=== PATIENT | female | born 1930 | race Caucasian/White ===

== ENCOUNTER 2017-01-25 12:26 | Inpatient (IN) | payer MEDICARE, BC ==
[2017-01-25] MEDS ORDERED: HEPARIN SODIUM,PORCINE/D5W PMX 25,000 UNIT in DEXTROSE/WATER 1 500ML.BAG IV STA (12:31)
[2017-01-25] MEDS ORDERED: HEPARIN SODIUM,PORCINE 5,000 UNIT/ML 1 ML VIAL IV STA (12:31)
[2017-01-25] MEDS ORDERED: NITROGLYCERIN-D5W PMX 50 MG in DEXTROSE/WATER 1 250ML.BAG IV ONE (12:35)
[2017-01-25] MEDS ORDERED: VERAPAMIL 2.5 MG/ML 2 ML AMP ONE (12:39)
[2017-01-25] MEDS ORDERED: fentaNYL (PF) 50 MCG/ML 2 ML AMP ONE (12:39)
[2017-01-25] MEDS ORDERED: LIDOCAINE 2% INJ 20 MG/ML (20 ML MDV) ONE (12:39)
[2017-01-25] MEDS ORDERED: HEPARIN SODIUM 1,000 UNIT/ML VIAL ONE (12:40)
--- NOTE | 2017-01-25 12:42 | ED ---
Chest Pain HPI - General Chief Complaint: Chest Pain Stated Complaint: Stemi Source: patient, EMS Mode of arrival: EMS Limitations: no limitations - History of Present Illness Initial Comments: This 86-year-old white female presents with a complaint of weakness which is been present over the last 3 days. She apparently has been weak to the point where she is having problems walking. She has felt nauseated but has not vomited. She denies any actual chest pain or shortness of breath. She states that she felt 'terrible'. She is having a hard time describing it any further. She does have a history of dementia but actually is alert and oriented currently. She denies any known previous cardiac problems. She has had a remote stress test. She did present via EMS and they gave her an aspirin and route. They did complete an EKG which shows ST elevation of the inferior leads and they transmitted us prior to arrival. No other complaints or modifying factors. - Related Data Home Medications Medication Instructions Recorded Confirmed Furosemide [Furosemide] 20 mg PO DAILY 12/05/15 01/25/17 Lisinopril [Zestril] 10 mg PO DAILY 02/05/16 01/25/17 glipiZIDE [Glucotrol] 15 mg PO BID 02/05/16 01/25/17 Allergies Allergy/AdvReac Type Severity Reaction Status Date / Time No Known Allergies Allergy Verified 01/25/17 13:22 Review of Systems ROS Statement: Those systems with pertinent positive or pertinent negative responses have been documented in the HPI. ROS Other: All systems not noted in ROS Statement are negative. Past Medical History Past Medical History: Diabetes Mellitus, Eye Disorder, Hypertension, Pneumonia, Vascular Disorder Additional Past Medical History / Comment(s): family suspects TIA"s and alzhiemers. lt breast cancer 10 years ago. Swelling in bilateral legs History of Any Multi-Drug Resistant Organisms: None Reported Past Surgical History: Tonsillectomy Additional Past Surgical History / Comment(s): breast cancer-10 years ago Past Anesthesia/Blood Transfusion Reactions: No Reported Reaction Past Psychological History: No Psychological Hx Reported Smoking Status: Never smoker Past Alcohol Use History: None Reported Past Drug Use History: None Reported - Past Family History Brother(s) Family Medical History: Cancer Additional Family Medical History / Comment(s): breast and colon Father Family Medical History: Cancer Additional Family Medical History / Comment(s): prostated Sister(s) Family Medical History: Cancer Additional Family Medical History / Comment(s): bladder cancer Mother Family Medical History: Dementia General Exam - General Exam Comments Initial Comments: GENERAL: The patient is well nourished and well hydrated. VITAL SIGNS: Heart rate, blood pressure, respiratory rate reviewed as recorded in nurse's notes. EYES: Pupils are round and reactive. Extraocular movements are intact. No conjunctival / lid redness or swelling. ENT: No external evidence of injury, swelling, or ecchymosis. Airway is patent. Throat is clear. NECK: Nontender. No swelling or evidence of injury. No subcutaneous emphysema. Trachea is midline. No thyroid mass. HEART: Regular rate and rhythm. Good peripheral pulses. LUNGS/CHEST: Breath sounds clear and equal bilaterally. No rales, rhonchi, or wheezes. No ecchymosis, subcutaneous emphysema, or tenderness. ABDOMEN: Abdomen soft without tenderness. No palpable masses or organomegaly. No peritoneal signs. No abdominal wall swelling or ecchymosis. EXTREMITIES: No extremity tenderness. Normal muscle tone and function. No thoracolumbar tenderness. NEUROLOGIC: Sensation is grossly intact. Cranial nerve exam reveals face is symmetrical, tongue is midline, speech is clear. SKIN: No abrasions or ecchymosis is noted. No induration or masses noted. PSYCHIATRIC: Alert and oriented. Appropriate behavior and judgment. Limitations: no limitations Course Vital Signs 01/25/17 01/25/17 01/25/17 12:27 12:42 12:47 Temperature 98.7 F Pulse Rate 65 74 66 Respiratory 16 18 Rate Blood Pressure 129/63 130/57 85/50 O2 Sat by Pulse 98 Oximetry 01/25/17 01/25/17 01/25/17 12:49 12:52 13:02 Temperature Pulse Rate 64 64 62 Respiratory 18 Rate Blood Pressure 90/50 92/54 110/62 O2 Sat by Pulse 100 100 100 Oximetry 01/25/17 01/25/17 13:06 13:42 Temperature Pulse Rate 62 60 Respiratory 16 16 Rate Blood Pressure 126/71 124/66 O2 Sat by Pulse 100 98 Oximetry Chest Pain MDM - MDM The patient was seen and examined. All diagnostics were reviewed. The EKG shows ST elevation in lead's to 3 and aVF. It also shows a normal sinus rhythm at a rate of 66. The RI interval is 200, QRS duration is 102, and QTC intervals 436. This is consistent with EKG completed by EMS as well. The case is discussed with cardiology directly after patient arrival. A STEMI activation was completed. The patient initially was started on nitroglycerin but this was discontinued as the patient's blood pressure dropped. Heparin is initiated. An aspirin was not given as the patient had an aspirin given to her by EMS. The patient and her son decided to not undergo heart catheterization and elected for medical treatment. Her troponin came back severely elevated. She will be admitted to the intensive care unit for further treatment. The case was discussed with cardiology in the ER. The case is also discussed with Dr. Ortiz and he accepts admission. Pulmonology/critical care also will be consulted and case will be discussed with Dr. Ramos in in the near future. It is felt as though she is critically ill. Approximately 30 minutes of critical care time was utilized and the treatment of the patient. Disposition Clinical Impression: ST elevation myocardial infarction (STEMI) of inferior wall, Weakness, Nausea, Elevated troponin Disposition: ADMITTED IP TO THIS [facility] Condition: Critical Time of Disposition: 14:02 Decision Date: 01/25/17 Decision Time: 14:02
[2017-01-25 12:48] LABS: CH 31.7; CHCM 34.4; HCT 41.7 % (34.0-46.0); HDW 2.56; HGB 14.2 gm/dL (11.4-16.0); MCH 31.5 pg (25.0-35.0); MCHC 34.1 g/dL (31.0-37.0); MCV 92.6 fL (80.0-100.0); Mean Platelet Volume 7.3; RDW 12.9 % (11.5-15.5); WBC 11.8 k/uL (3.8-10.6)
[2017-01-25 12:58] LABS: ALT 60 U/L (9-52); AST 142 U/L (14-36); Alkaline Phosphatase 98 U/L (38-126); Anion Gap 17 mmol/L; Blood Urea Nitrogen 40 mg/dL (7-17); Calcium 9.9 mg/dL (8.4-10.2); Carbon Dioxide 20 mmol/L (22-30); Chloride 98 mmol/L (98-107); Glucose 258 mg/dL (74-99); Non-African American GFR(MDRD) 56 (>60 ml/min/1.73 sqM); Potassium 5.1 mmol/L (3.5-5.1); Sodium 135 mmol/L (137-145); Total Bilirubin 1.4 mg/dL (0.2-1.3); Total Protein 7.3 g/dL (6.3-8.2)
[2017-01-25 13:01] LABS: INR 1.1 (<1.1); Partial Thromboplastin Time 22.8 sec (22.0-30.0); Prothrombin Time 11.4 sec (9.0-12.0)
[2017-01-25 13:29] LABS: Creatine Kinase MB 42.8 ng/mL (0.0-2.4); Troponin I 17.7 ng/mL (0.000-0.034)
[2017-01-25] MEDS ORDERED: NITROGLYCERIN SL TABS 0.4 MG TAB SUBLINGUAL PRN (14:03)
--- NOTE | 2017-01-25 14:51 | XR ---
EXAMINATION TYPE: XR chest 1V portable DATE OF EXAM: 01/25/2017 2:38 PM HISTORY: chest pain. REFERENCE: Previous study dated 02/05/2016. FINDINGS: The heart is enlarged. There are surgical clips projecting over the left side of the chest. The lungs are clear. Pleural spaces are clear. IMPRESSION: 1. CARDIOMEGALY. 2. POSTSURGICAL CHANGE.
[2017-01-25] MEDS: CLOPIDOGREL 75 MG TAB PO SCH (15:00)
[2017-01-25] MEDS: ATORVASTATIN 80 MG TAB PO SCH (15:00)
--- NOTE | 2017-01-25 17:37 | CONS ---
DATE OF CONSULTATION: 01/25/2017 Ms. Menezes is an 86-year-old female who was seen in the emergency room. Patient has been complaining of nausea, vomiting and not feeling good for the last 3 days. Apparently today when she was using her walker she became more short of breath. Her son insisted on her coming to the emergency room and the EMS was called. EKG was consistent with an inferior wall myocardial infarction. The patient denies any prior history of cardiac disease except a heart murmur. She has no chest discomfort, chest pressure or symptoms to suggest angina pectoris. She has mild dyspnea on exertion. She has had some peripheral edema in the past. No PND. No orthopnea. No dizziness. No syncope. Her coronary risk factors are remarkable for smoking. She is not hypertensive. Her medication list is not available to me at this time. REVIEW OF SYSTEMS: RESPIRATORY SYSTEM: She has some dyspnea on exertion. No recent wheezing or cough. GI SYSTEM: No recent GI bleeding. No peptic ulcer disease. SYSTEM: No dysuria or hematuria. NERVOUS SYSTEM: No stroke or seizure. PHYSICAL EXAMINATION: She is an 86-year-old female, alert, in no apparent distress. Heart rate in the 60s. Blood pressure 129/70. HEAD: Normocephalic. EYES: Sclerae anicteric. NECK: Good upstroke. No bruit. LUNGS: Clear to auscultation. HEART: Regular rate and rhythm. S1, S2, no S3, with systolic murmur at the base. No diastolic murmur. No rub. ABDOMEN: Soft, nontender. Trace to 1+ edema, +2 distal pulses. EKG reveals sinus mechanism with ST elevation in 2, 3 and AVF. Mild changes on the lateral precordial leads. Other labs are pending. IMPRESSION: 1. Acute inferior myocardial infarction. 2. History of hypertension. RECOMMENDATION: I have discussed with the patient the findings. I have discussed with her the situation and the option of proceeding with coronary angiography versus conservative treatment. She expressed wish to be a NO CODE but she is not quite sure if she wants to proceed with cardiac catheterization and she would like to wait for her son to arrive to make further decision, but at this time she favored not to proceed with any aggressive work-up. We will await her son arriving to make further decision. Thank you for this consult. We will follow with you.
[2017-01-25] MEDS: HEPARIN SODIUM,PORCINE/D5W PMX 25,000 UNIT in DEXTROSE/WATER 1 500ML.BAG IV SCH (18:48)
[2017-01-25 18:49] LABS: Glucose,Whole Blood 264 mg/dL (75-99)
--- NOTE | 2017-01-25 18:59 | P.CNPUL ---
History of Present Illness Consult date: 01/25/17 Chief complaint: Acute MS History of present illness: This is a very pleasant 86-year-old here patient was brought into the emergency department and she was immediately found out to be an acute ST segment elevation myocardial infarction involving the area inferior wall. The patient was complaining of nausea vomiting and generalized weakness for the past 3 days. Her son came into the house and he also found her to be short of breath. He insisted on bringing her to the hospital and the patient EKG showed inferior wall myocardial infarction which was of an ST segment elevation type. The patient was seen by cardiology. She declined any further intervention. Currently she is free of any chest pain. She is hemodynamically stable. No cardiac arrhythmias have been noted. No syncope. No ongoing nausea or vomiting. In fact she is much more comfortable at this point on aspirin and IV heparin. She is making adequate amount of urine output. The patient's initial troponin was at 17.7. Renal function was normal with a creatinine of 0.95. The chest x-ray is showing cardiomegaly. She has a DNR/DNI CODE STATUS. Review of Systems Full review of system was done and the positive findings are almost above the history of present illness Past Medical History Past Medical History: Cancer, Diabetes Mellitus, Eye Disorder, Hypertension, Pneumonia, Vascular Disorder Additional Past Medical History / Comment(s): Alzheimer's dementia, previous history of TIA, breast cancer diagnosed approximately 10 years ago, previous UTI , diabetes mellitus, hypertension, peripheral vascular disease with a previous ulcer in the right lower extremity 2016 at was treated History of Any Multi-Drug Resistant Organisms: None Reported Past Surgical History: Tonsillectomy Additional Past Surgical History / Comment(s): Lumpectomy Past Anesthesia/Blood Transfusion Reactions: No Reported Reaction Past Psychological History: No Psychological Hx Reported Additional Psychological History / Comment(s): pt stated currently living alone( at [facility])-lives n ahouse that has 2 steps to get into home. no pets.no outside services.has a cane/walker. Smoking Status: Never smoker Past Alcohol Use History: None Reported Past Drug Use History: None Reported - Past Family History Brother(s) Family Medical History: Cancer Additional Family Medical History / Comment(s): breast and colon Father Family Medical History: Cancer Additional Family Medical History / Comment(s): prostated Sister(s) Family Medical History: Cancer Additional Family Medical History / Comment(s): bladder cancer Mother Family Medical History: Dementia Medications and Allergies Home Medications Medication Instructions Recorded Confirmed Type Furosemide [Furosemide] 20 mg PO DAILY 12/05/15 01/25/17 History Lisinopril [Zestril] 10 mg PO DAILY 02/05/16 01/25/17 History glipiZIDE [Glucotrol] 15 mg PO BID 02/05/16 01/25/17 History Allergies Allergy/AdvReac Type Severity Reaction Status Date / Time No Known Allergies Allergy Verified 01/25/17 13:22 Physical Exam Vitals: Vital Signs Temp Pulse Resp BP Pulse Ox 01/25/17 18:00 72 19 103/66 100 01/25/17 17:30 65 19 103/66 100 01/25/17 17:19 97.6 F 68 18 100 01/25/17 16:56 97.5 F L 69 16 103/58 100 01/25/17 16:26 97.1 F L 66 18 135/61 100 01/25/17 15:27 66 131/56 100 01/25/17 14:33 66 18 123/65 01/25/17 14:30 96.7 F L 66 18 138/64 100 01/25/17 14:02 64 18 125/62 01/25/17 13:42 60 16 124/66 98 01/25/17 13:06 62 16 126/71 100 01/25/17 13:02 62 18 110/62 100 Intake and Output 01/25/17 01/25/17 01/25/17 06:59 14:59 22:59 Intake Total 20 Balance 20 Intake: IV 20 0.9 normal saline 20 The patient appeared well nourished and normally developed. Vital signs as documented. Head exam is unremarkable. No scleral icterus or corneal arcus noted. Neck is without jugular venous distension, thyromegaly, or carotid bruits. Carotid upstrokes are brisk bilaterally. Lungs are clear to auscultation and percussion. Cardiac exam reveals the PMI to be normally sized and situated. Rhythm is regular. First and second heart sounds normal. No murmurs, rubs or gallops. Abdominal exam reveals normal bowel sounds, no masses , no organomegaly and no aortic enlargement. Extremities are nonedematous and both femoral and pedal pulses are normal. Results - Laboratory Findings CBC and BMP: 01/25/17 12:37 01/25/17 12:37 PT/INR, D-dimer PT 11.4 sec (9.0-12.0) 01/25/17 12:37 INR 1.1 (<1.1) 01/25/17 12:37 Abnormal lab findings: Abnormal Labs 01/25/17 18:47 POC Glucose (mg/dL) 264 H - Diagnostic Findings Chest x-ray: image reviewed Assessment and Plan Plan: Assessment [address] segment elevation inferior wall myocardial infarction. Patient is currently hemodynamically stable. The patient is feeling any chest pain. Troponin is at 17.7 initial set of further levels are still pending. Patient declined having any procedures. 2 diabetes mellitus 3 cardiomegaly without signs of heart failure. 4 hypertension 5 breast cancer with a previous lumpectomy followed by radiation therapy on the left this was more than 10 years ago 6 peripheral vascular disease 7 history of dementia and it is suspected by the family. PLAN Continue aspirin 81 mg by mouth daily, Plavix 75 mg by mouth daily, metoprolol 12.5 mg by mouth twice a day, nitroglycerin was discontinued and the patient developed hypotension. Cautious administration of Lasix 90 the patient is inferior wall myocardial infarction. Continue Heladio inhibitors. Continue high- dose statins. Echocardiogram in a.m. IV heparin for another 24-48 hours. Keep the patient for monitoring in the IC from the 24-48 hours. We'll continue to follow. No interventions in terms of cardiac cath. Patient's wish.
[2017-01-25] MEDS: INSULIN LISPRO (humaLOG) 300 UNIT/3 ML VIAL SQ SCH ×2 (19:05→21:57)
[2017-01-25 19:32] LABS: Creatine Kinase MB 32.7 ng/mL (0.0-2.4); Troponin I 18.6 ng/mL (0.000-0.034)
[2017-01-25] MEDS: glipiZIDE 5 MG TAB PO SCH (21:57)
[2017-01-25] MEDS: METOPROLOL TARTRATE 12.5 MG TAB PO SCH (21:57)
[2017-01-25 21:58] LABS: Glucose,Whole Blood 204 mg/dL (75-99)
[2017-01-25 22:36] LABS: Hemoglobin A1C 6.9 % (4.2-6.1)
[2017-01-26 01:12] LABS: Creatine Kinase MB 22.9 ng/mL (0.0-2.4)
[2017-01-26] MEDS: HEPARIN SODIUM,PORCINE 5,000 UNIT/ML 1 ML VIAL IV PRN ×2 (01:19→18:59)
[2017-01-26 06:23] LABS: Glucose,Whole Blood 191 mg/dL (75-99)
[2017-01-26 06:59] LABS: Basophils % (A) 0 %; CH 31.5; CHCM 34.6; Eosinophils # (A) 0.1 k/uL (0-0.7); Eosinophils % (A) 0 %; HCT 36.7 % (34.0-46.0); HDW 2.51; HGB 12.3 gm/dL (11.4-16.0); Luc # (Auto) 0.23; Luc % (Auto) 2; Lymphocytes # (A) 1.3 k/uL (1.0-4.8); Lymphocytes % (A) 10 %; MCH 30.7 pg (25.0-35.0); MCHC 33.5 g/dL (31.0-37.0); MCV 91.6 fL (80.0-100.0); Mean Platelet Volume 7.7; Monocytes % (A) 7 %; Neutrophils # (A) 10.6 k/uL (1.3-7.7); Neutrophils % (A) 81 %; RBC 4.01 m/uL (3.80-5.40); RDW 13.2 % (11.5-15.5); WBC 13.2 k/uL (3.8-10.6); WBC (Perox) 13.03
[2017-01-26 07:10] LABS: Anion Gap 13 mmol/L; Blood Urea Nitrogen 42 mg/dL (7-17); Calcium 8.9 mg/dL (8.4-10.2); Carbon Dioxide 16 mmol/L (22-30); Chloride 102 mmol/L (98-107); Cholesterol 106 mg/dL (<200); Glucose 194 mg/dL (74-99); HDL Cholesterol 37 mg/dL (40-60); Non-African American GFR(MDRD) 58 (>60 ml/min/1.73 sqM); Potassium 4.8 mmol/L (3.5-5.1); Sodium 131 mmol/L (137-145); Triglycerides 62 mg/dL (<150)
[2017-01-26] MEDS: ATORVASTATIN 80 MG TAB PO SCH (08:02)
[2017-01-26] MEDS: ASPIRIN 81 MG CHEW PO SCH (08:02)
[2017-01-26] MEDS: glipiZIDE 5 MG TAB PO SCH ×2 (08:03→21:09)
[2017-01-26] MEDS: FUROSEMIDE 20 MG TAB PO SCH (08:04)
[2017-01-26] MEDS: LISINOPRIL 10 MG TAB PO SCH (08:04)
[2017-01-26] MEDS: METOPROLOL TARTRATE 12.5 MG TAB PO SCH ×2 (08:04→21:09)
[2017-01-26] MEDS: INSULIN LISPRO (humaLOG) 300 UNIT/3 ML VIAL SQ SCH ×4 (08:07→21:09)
[2017-01-26 08:18] LABS: Glucose,Whole Blood 220 mg/dL (75-99)
[2017-01-26] MEDS: CLOPIDOGREL 75 MG TAB PO SCH (10:26)
[2017-01-26 11:40] LABS: Glucose,Whole Blood 214 mg/dL (75-99)
--- NOTE | 2017-01-26 11:56 | ECHOF ---
Referral Reason:mi MEASUREMENTS -------- HEIGHT: 157.5 cm WEIGHT: 68.0 kg BP: RVIDd: 3.9 cm (< 3.3) IVSd: 1.1 cm (0.6 - 1.1) LVIDd: 2.5 cm (3.9 - 5.3) LVPWd: 1.0 cm (0.6 - 1.1) IVSs: 1.5 cm LVIDs: 2.2 cm LVPWs: 1.3 cm LA Diam: 3.6 cm (2.7 - 3.8) Ao Diam: 3.3 cm (2.0 - 3.7) AV Cusp: 0.8 cm (1.5 - 2.6) LA Diam: 3.7 cm (2.7 - 3.8) MV EXCURSION: 15.618 mm (> 18.000) MV EF SLOPE: 39 mm/s (70 - 150) EPSS: 0.4 cm MV E Figueroa: 0.80 m/s MV DecT: 330 ms MV A Figueroa: 1.33 m/s MV E/A Ratio: 0.60 AV maxP.87 mmHg AV meanP.37 mmHg RAP: 5.00 mmHg RVSP: 15.69 mmHg FINDINGS -------- Sinus rhythm. This was a technically adequate study. There is mild concentric left ventricular hypertrophy. Overall left ventricular systolic function is low-normal with, an EF between 50 - 55 %. The right ventricle is severely enlarged. The right ventricular septal wall is flattened in diastole and systole which is consistent with right ventricular volume and pressure overload. The left atrial size is normal. The right atrium is moderately enlarged. There is mild aortic regurgitation. Peak/mean gradient across the Aortic Valve is 17.87mmHg / 9.37mmHg. Aov is stenotic with decrease openeing: gradient is under estimated. Mild mitral annular calcification present. Mild mitral regurgitation is present. Moderate tricuspid regurgitation present. There is no evidence of pulmonary hypertension. The right ventricular systolic pressure, as measured by Doppler, is 15.69mmHg. There is no pulmonic regurgitation present. The aortic root size is normal. There is no pericardial effusion. CONCLUSIONS -------- 1. There is mild concentric left ventricular hypertrophy. 2. Mild mitral regurgitation is present. 3. Moderate tricuspid regurgitation present. 4. There is no evidence of pulmonary hypertension. 5. The right ventricular systolic pressure, as measured by Doppler, is 15.69mmHg. 6. Overall left ventricular systolic function is low-normal with, an EF between 50 - 55 %. 7. The right ventricle is severely enlarged. 8. The right ventricular septal wall is flattened in diastole and systole which is consistent with right ventricular volume and pressure overload. 9. The right atrium is moderately enlarged. 10. There is mild aortic regurgitation. 11. Peak/mean gradient across the Aortic Valve is 17.87mmHg / 9.37mmHg. 12. Aov is stenotic with decrease openeing: gradient is under estimated. 13. Mild mitral annular calcification present. LAUNDRY TECH: Zeina Garcia RDCS
[2017-01-26] MEDS ORDERED: Magnesium Replacement Protocol 1 EACH MISC MISCELLANE PRN (12:38)
[2017-01-26] MEDS ORDERED: Potassium Replacement Protocol 1 EACH MISC MISCELLANE PRN (12:38)
--- NOTE | 2017-01-26 13:47 | P.HPIM ---
History of Present Illness H&P Date: 01/26/17 Chief Complaint: Not feeling well This is a 86-year-old female with past medical history noted below significant for underlying dementia that is a very poor historian. Most of the history was obtained by chart review and nursing staff report. Apparently patient presented to the emergency room with generalized weakness and not feeling well. She has been reporting nausea and intermittent vomiting to her son for the past few days. She did not want to go to the hospital for evaluation for her son insisted and eventually she presented to [place] emergency room. She was found to have an acute ST elevation AR in the inferior leads. She was evaluated by cardiology and after discussion with her and her family members they elected to proceed with medical management and no aggressive measures. Patient would like to be DO NOT RESUSCITATE/DO NOT INTUBATE. She is currently on telemetry floor. She is awake and alert and appeared cheerful. She does not have any specific concerns or complaints. She denies any chest pain or shortness of breath at this time. She is maintained on optimize medical management involving IV heparin, underwent antiplatelet therapy, beta angelika, and Heladio inhibitors. Review of Systems Review of system: 14 points review of systems were obtained and were negative except to what were mentioned in the HPI. Past Medical History Past Medical History: Cancer, Diabetes Mellitus, Eye Disorder, Hypertension, Pneumonia, Vascular Disorder Additional Past Medical History / Comment(s): Alzheimer's dementia, previous history of TIA, breast cancer diagnosed approximately 10 years ago, previous UTI , diabetes mellitus, hypertension, peripheral vascular disease with a previous ulcer in the right lower extremity 2016 at was treated History of Any Multi-Drug Resistant Organisms: None Reported Past Surgical History: Tonsillectomy Additional Past Surgical History / Comment(s): Lumpectomy Past Anesthesia/Blood Transfusion Reactions: No Reported Reaction Past Psychological History: No Psychological Hx Reported Additional Psychological History / Comment(s): pt stated currently living alone( at [facility])-lives n ahouse that has 2 steps to get into home. no pets.no outside services.has a cane/walker. Smoking Status: Never smoker Past Alcohol Use History: None Reported Past Drug Use History: None Reported - Past Family History Brother(s) Family Medical History: Cancer Additional Family Medical History / Comment(s): breast and colon Father Family Medical History: Cancer Additional Family Medical History / Comment(s): prostated Sister(s) Family Medical History: Cancer Additional Family Medical History / Comment(s): bladder cancer Mother Family Medical History: Dementia Medications and Allergies Home Medications Medication Instructions Recorded Confirmed Type Furosemide [Furosemide] 20 mg PO DAILY 12/05/15 01/25/17 History Lisinopril [Zestril] 10 mg PO DAILY 02/05/16 01/25/17 History glipiZIDE [Glucotrol] 15 mg PO BID 02/05/16 01/25/17 History Allergies Allergy/AdvReac Type Severity Reaction Status Date / Time No Known Allergies Allergy Verified 01/25/17 13:22 Physical Exam Vitals: Vital Signs Temp Pulse Pulse Resp BP BP Pulse Ox 01/26/17 08:00 98.8 F 60 16 118/58 98 01/26/17 04:52 59 L 16 125/71 95 01/26/17 00:00 98.4 F 70 16 131/66 97 01/25/17 22:00 62 18 152/75 99 01/25/17 21:00 77 14 128/72 99 01/25/17 20:00 98.5 F 71 15 134/82 100 01/25/17 19:00 72 23 103/58 98 01/25/17 18:00 72 19 103/66 100 01/25/17 17:40 19 01/25/17 17:30 65 19 103/66 100 01/25/17 17:19 97.6 F 68 18 100 01/25/17 16:56 97.5 F L 69 16 103/58 100 01/25/17 16:26 97.1 F L 66 18 135/61 100 01/25/17 15:27 66 131/56 100 01/25/17 14:33 66 18 123/65 01/25/17 14:30 96.7 F L 66 18 138/64 100 01/25/17 14:02 64 18 125/62 01/25/17 13:42 60 16 124/66 98 Intake and Output 01/25/17 01/26/17 01/26/17 22:59 06:59 14:59 Intake Total 162.168 116.84 325.133 Output Total 200 204 Balance -37.832 -87.16 325.133 Intake: IV 100 0.9 normal saline 100 Intake, IV Titration 62.168 116.84 145.133 Amount Heparin Sodium,Porcine/ 5.168 116.84 145.133 D5w Pmx 25,000 unit In Dextrose/Water 1 500ml. bag @ 12 UNITS/KG/HR 16. 32 mls/hr IV .Q24H [facility] Rx #:[id number] Heparin Sodium,Porcine/ 57 D5w Pmx 25,000 unit In Dextrose/Water 1 500ml. bag @ 12 UNITS/KG/HR 16. 32 mls/hr IV .Q24H [facility] Rx #:[id number] Oral 180 Output: Urine 200 200 Stool 4 Other: Voiding Method Bedside Commode Bedside Commode Bedside Commode Incontinent Incontinent Incontinent # Voids 1 Weight 65.1 kg General: The patient is awake and alert, in no distress, and does not appear acutely ill. Eye: extra-ocular movements are intact; there is normal conjunctiva bilaterally. . Neck: The neck is supple, there is no tenderness or JVD. Cardiovascular: Normal S1-S2, no S3-S4, no murmurs. Respiratory: Lungs clear to auscultation bilaterally with no wheezes rhonchi or rales. Gastrointestinal: Abdomen is soft, nontender, nondistended, with no organomegaly. . Musculoskeletal: There is no pedal edema. Neurological: There are no obvious motor or sensory deficits. Speech is normal. Skin: Skin is warm and dry Results CBC & Chem 7: 01/26/17 06:33 01/26/17 06:33 Labs: Abnormal Lab Results - Last 24 Hours (Table) 01/25/17 01/25/17 01/25/17 Range/Units 18:33 18:33 18:47 WBC (3.8-10.6) k/uL Neutrophils # (1.3-7.7) k/uL APTT 46.0 H (22.0-30.0) sec Sodium (137-145) mmol/L Carbon Dioxide (22-30) mmol/L BUN (7-17) mg/dL Glucose (74-99) mg/dL POC Glucose (mg/dL) 264 H (75-99) mg/dL Total Creatine Kinase 763 H (30-135) U/L CK-MB (CK-2) 32.7 H* (0.0-2.4) ng/mL Troponin I 18.600 H* (0.000-0.034) ng/mL HDL Cholesterol (40-60) mg/dL 01/25/17 01/26/17 01/26/17 Range/Units 21:57 00:27 00:27 WBC (3.8-10.6) k/uL Neutrophils # (1.3-7.7) k/uL APTT 46.6 H (22.0-30.0) sec Sodium (137-145) mmol/L Carbon Dioxide (22-30) mmol/L BUN (7-17) mg/dL Glucose (74-99) mg/dL POC Glucose (mg/dL) 204 H (75-99) mg/dL Total Creatine Kinase 616 H (30-135) U/L CK-MB (CK-2) 22.9 H* (0.0-2.4) ng/mL Troponin I 18.000 H* (0.000-0.034) ng/mL HDL Cholesterol (40-60) mg/dL 01/26/17 01/26/17 01/26/17 Range/Units 06:22 06:33 06:33 WBC 13.2 H (3.8-10.6) k/uL Neutrophils # 10.6 H (1.3-7.7) k/uL APTT (22.0-30.0) sec Sodium 131 L (137-145) mmol/L Carbon Dioxide 16 L (22-30) mmol/L BUN 42 H (7-17) mg/dL Glucose 194 H (74-99) mg/dL POC Glucose (mg/dL) 191 H (75-99) mg/dL Total Creatine Kinase (30-135) U/L CK-MB (CK-2) (0.0-2.4) ng/mL Troponin I (0.000-0.034) ng/mL HDL Cholesterol 37 L (40-60) mg/dL 01/26/17 01/26/17 01/26/17 Range/Units 06:33 08:00 11:32 WBC (3.8-10.6) k/uL Neutrophils # (1.3-7.7) k/uL APTT 108.3 H* (22.0-30.0) sec Sodium (137-145) mmol/L Carbon Dioxide (22-30) mmol/L BUN (7-17) mg/dL Glucose (74-99) mg/dL POC Glucose (mg/dL) 220 H 214 H (75-99) mg/dL Total Creatine Kinase (30-135) U/L CK-MB (CK-2) (0.0-2.4) ng/mL Troponin I (0.000-0.034) ng/mL HDL Cholesterol (40-60) mg/dL Thrombosis Risk Factor Assmnt - Choose All That Apply Any of the Below Risk Factors Present?: Yes Each Factor Represents 1 point: Acute AR, Obesity (BMI >25), Swollen legs ( current) Other Risk Factors: Yes Each Risk Factor Represents 2 Points: Malignancy Each Risk Factor Represents 3 Points: Age 75 years or older Other congenital or acquired thrombophilia - If yes, enter type in comment: No Thrombosis Risk Factor Assessment Total Risk Factor Score: 8 Thrombosis Risk Factor Assessment Level: High Risk Assessment and Plan Plan: 1. Acute inferior wall ST elevation myocardial infarction 2. Essential hypertension 3. Mixed hyperlipidemia currently on Lipitor 80 for acute AR. Total cholesterol 106, LDL 57 4. Underlying dementia/cognitive impairment 5. Type 2 diabetes mellitus Today, I reviewed her medication list the lab work results. Continue optimal medical management with dual antiplatelet therapy, beta angelika, and Heladio inhibitors. Lipitor 80 for now may be decreased upon discharge given that her cholesterol level is at goal. Echocardiogram showed preserved ejection fraction of 55-60%. We will repeat lab work in the morning. Consult PT/OT.
[2017-01-26] MEDS: HEPARIN SODIUM,PORCINE/D5W PMX 25,000 UNIT in DEXTROSE/WATER 1 500ML.BAG IV SCH (15:32)
[2017-01-26 16:38] LABS: Glucose,Whole Blood 139 mg/dL (75-99)
--- NOTE | 2017-01-26 17:50 | PN ---
Ms. Menezes is an 86-year-old female who presented with acute ST segment elevation myocardial infarction. She has declined any invasive work up. She is feeling well this morning. She is denying any chest pain. Her breathing has been stable. She denies any dizziness, palpitation. She denies any nausea. She continues to be in sinus mechanism. She continues to be on: 1. Aspirin once a day. 2. Lipitor 10 mg daily. 3. Plavix 75 mg daily. 4. Lasix 20 mg daily. 5. IV heparin. 6. Lisinopril 10 mg daily. 7. Metoprolol tartrate 12.5 mg twice a day. 8. Glipizide. PHYSICAL EXAMINATION: Blood pressure 118/50 with a heart rate in the 60s. LUNGS: Clear. HEART: Regular rate and rhythm. S1, S2, no S3, with systolic murmur. No diastolic murmur. No rub. ABDOMEN: Soft, nontender. EXTREMITIES: No edema. Lab data revealed a troponin of peak of 18.6. Her BUN and creatinine 42 and 0.92. Potassium 4.8. Hemoglobin 12.3. Her echocardiogram showed an ejection fraction of 50% to 55% with dilatation of the right ventricle and moderate tricuspid regurgitation. There was no documentation of segmental wall motion abnormality. IMPRESSION: 1. Status post inferior myocardial infarction. The patient has declined any aggressive work-up. 2. History of hypertension. 3. Dilatation of right ventricle, most likely related to the inferior wall myocardial infarction. RECOMMENDATIONS: From the cardiac standpoint, we will continue conservative care. I will stop the heparin in 24 hours. Continue the rest of her medical regimen. Follow her renal function. Depending on her progress, further recommendation will be made.
[2017-01-26 21:09] LABS: Glucose,Whole Blood 177 mg/dL (75-99)
[2017-01-26 23:42] LABS: Basophils # (A) 0.1 k/uL (0-0.2); Basophils % (A) 1 %; CH 31.5; CHCM 34.8; Eosinophils % (A) 0 %; HCT 31.4 % (34.0-46.0); HDW 2.65; HGB 10.6 gm/dL (11.4-16.0); Luc # (Auto) 0.24; Luc % (Auto) 2; Lymphocytes % (A) 14 %; MCH 30.7 pg (25.0-35.0); MCHC 33.7 g/dL (31.0-37.0); MCV 91.1 fL (80.0-100.0); Monocytes # (A) 0.9 k/uL (0-1.0); Monocytes % (A) 6 %; Neutrophils # (A) 11.3 k/uL (1.3-7.7); Neutrophils % (A) 78 %; RBC 3.45 m/uL (3.80-5.40); RDW 13.6 % (11.5-15.5); WBC 14.5 k/uL (3.8-10.6); WBC (Perox) 14.23
[2017-01-27 05:59] LABS: Glucose,Whole Blood 220 mg/dL (75-99)
[2017-01-27] MEDS: INSULIN LISPRO (humaLOG) 300 UNIT/3 ML VIAL SQ SCH ×4 (06:52→21:10)
[2017-01-27 07:16] LABS: Basophils # (A) 0.1 k/uL (0-0.2); Basophils % (A) 0 %; CH 31.1; CHCM 33.6; Eosinophils % (A) 0 %; HCT 31.3 % (34.0-46.0); HDW 2.58; HGB 10.8 gm/dL (11.4-16.0); Luc % (Auto) 2; Lymphocytes % (A) 16 %; MCHC 34.4 g/dL (31.0-37.0); MCV 92.9 fL (80.0-100.0); Mean Platelet Volume 7.9; Monocytes # (A) 0.8 k/uL (0-1.0); Monocytes % (A) 6 %; Neutrophils # (A) 9.4 k/uL (1.3-7.7); Neutrophils % (A) 75 %; RBC 3.37 m/uL (3.80-5.40); RDW 13.3 % (11.5-15.5); WBC 12.4 k/uL (3.8-10.6); WBC (Perox) 12.91
[2017-01-27 07:32] LABS: Calcium 8.7 mg/dL (8.4-10.2); Magnesium 1.5 mg/dL (1.6-2.3); Potassium 4.7 mmol/L (3.5-5.1); Total Bilirubin 0.9 mg/dL (0.2-1.3); Total Protein 5.5 g/dL (6.3-8.2)
[2017-01-27] MEDS ORDERED: Magnesium Replacement Protocol 1 EACH MISC MISCELLANE PRN (08:23)
[2017-01-27] MEDS: MAGNESIUM SULFATE-D5W PMX 1 GM in DEXTROSE/WATER 1 100ML.BAG IVPB SCH ×2 (08:37→11:33)
[2017-01-27] MEDS: METOPROLOL TARTRATE 12.5 MG TAB PO SCH ×3 (08:38→23:35)
[2017-01-27] MEDS: LISINOPRIL 10 MG TAB PO SCH (08:38)
[2017-01-27] MEDS: glipiZIDE 5 MG TAB PO SCH ×2 (08:38→21:09)
[2017-01-27] MEDS: FUROSEMIDE 20 MG TAB PO SCH (08:39)
[2017-01-27] MEDS: ATORVASTATIN 80 MG TAB PO SCH (08:39)
[2017-01-27] MEDS: CLOPIDOGREL 75 MG TAB PO SCH (08:40)
[2017-01-27] MEDS: ASPIRIN 81 MG CHEW PO SCH (08:41)
--- NOTE | 2017-01-27 10:58 | P.PN ---
Subjective Patient is awake and alert today. She is seated up in the chair. Asked that she had 2 dark tarry stool tested positive for Hemoccult. Her hemoglobin dropped approximately 2 g. She remained hemodynamically stable. IV heparin was discontinued overnight. Objective - Vital Signs Vital signs: Vital Signs Temp 98.3 F 01/27/17 08:00 Pulse 62 01/27/17 08:00 Resp 18 01/27/17 08:00 BP 108/58 01/27/17 08:00 Pulse Ox 97 01/27/17 08:00 Intake & Output 01/26/17 01/27/17 01/27/17 18:59 06:59 18:59 Intake Total 601.443 210 180 Output Total 1 Balance 600.443 210 180 Weight 66.5 kg Intake: IV 60 0.9 normal saline 60 Intake, IV Titration 321.443 Amount Heparin Sodium,Porcine/ 321.443 D5w Pmx 25,000 unit In Dextrose/Water 1 500ml. bag @ 12 UNITS/KG/HR 16. 32 mls/hr IV .Q24H [facility] Rx #:[id number] Oral 280 150 180 Output: Urine 1 Other: Voiding Method Bedside Commode Bedside Commode Bedside Commode Incontinent # Voids 1 # Bowel Movements 1 1 - Exam General: The patient is awake and alert, in no distress Eye: there is normal conjunctiva bilaterally. Neck: The neck is supple, there is no JVD. Cardiovascular: Normal S1-S2, no S3-S4, no murmurs. Respiratory: Lungs clear to auscultation bilaterally Gastrointestinal: Abdomen is soft, nontender Musculoskeletal: There is no pedal edema. Neurological:. Speech is normal. Skin: Skin is warm and dry - Labs CBC & Chem 7: 01/27/17 06:51 01/27/17 06:51 Labs: Abnormal Lab Results - Last 24 Hours (Table) 01/26/17 01/26/17 01/26/17 Range/Units 11:32 15:20 16:36 WBC (3.8-10.6) k/uL RBC (3.80-5.40) m/uL Hgb (11.4-16.0) gm/dL Hct (34.0-46.0) % Neutrophils # (1.3-7.7) k/uL APTT 40.5 H (22.0-30.0) sec Sodium (137-145) mmol/L Carbon Dioxide (22-30) mmol/L BUN (7-17) mg/dL Creatinine (0.52-1.04) mg/dL Glucose (74-99) mg/dL POC Glucose (mg/dL) 214 H 139 H (75-99) mg/dL Magnesium (1.6-2.3) mg/dL AST (14-36) U/L ALT (9-52) U/L Total Protein (6.3-8.2) g/dL Albumin (3.5-5.0) g/dL Stool Occult Blood (Negative) 01/26/17 01/26/17 01/26/17 Range/Units 21:07 22:45 23:35 WBC (3.8-10.6) k/uL RBC (3.80-5.40) m/uL Hgb (11.4-16.0) gm/dL Hct (34.0-46.0) % Neutrophils # (1.3-7.7) k/uL APTT 65.3 H (22.0-30.0) sec Sodium (137-145) mmol/L Carbon Dioxide (22-30) mmol/L BUN (7-17) mg/dL Creatinine (0.52-1.04) mg/dL Glucose (74-99) mg/dL POC Glucose (mg/dL) 177 H (75-99) mg/dL Magnesium (1.6-2.3) mg/dL AST (14-36) U/L ALT (9-52) U/L Total Protein (6.3-8.2) g/dL Albumin (3.5-5.0) g/dL Stool Occult Blood Positive H (Negative) 01/26/17 01/27/17 01/27/17 Range/Units 23:35 05:57 06:51 WBC 14.5 H 12.4 H (3.8-10.6) k/uL RBC 3.45 L 3.37 L (3.80-5.40) m/uL Hgb 10.6 L 10.8 L (11.4-16.0) gm/dL Hct 31.4 L 31.3 L (34.0-46.0) % Neutrophils # 11.3 H 9.4 H (1.3-7.7) k/uL APTT (22.0-30.0) sec Sodium (137-145) mmol/L Carbon Dioxide (22-30) mmol/L BUN (7-17) mg/dL Creatinine (0.52-1.04) mg/dL Glucose (74-99) mg/dL POC Glucose (mg/dL) 220 H (75-99) mg/dL Magnesium (1.6-2.3) mg/dL AST (14-36) U/L ALT (9-52) U/L Total Protein (6.3-8.2) g/dL Albumin (3.5-5.0) g/dL Stool Occult Blood (Negative) 01/27/17 Range/Units 06:51 WBC (3.8-10.6) k/uL RBC (3.80-5.40) m/uL Hgb (11.4-16.0) gm/dL Hct (34.0-46.0) % Neutrophils # (1.3-7.7) k/uL APTT (22.0-30.0) sec Sodium 132 L (137-145) mmol/L Carbon Dioxide 15 L (22-30) mmol/L BUN 95 H* (7-17) mg/dL Creatinine 1.25 H (0.52-1.04) mg/dL Glucose 214 H (74-99) mg/dL POC Glucose (mg/dL) (75-99) mg/dL Magnesium 1.5 L (1.6-2.3) mg/dL AST 111 H (14-36) U/L ALT 90 H (9-52) U/L Total Protein 5.5 L (6.3-8.2) g/dL Albumin 3.0 L (3.5-5.0) g/dL Stool Occult Blood (Negative) Assessment and Plan Plan: 1. Acute inferior wall ST elevation myocardial infarction 2. Essential hypertension 3. Mixed hyperlipidemia currently on Lipitor 80 for acute CO. Total cholesterol 106, LDL 57 4. Underlying dementia/cognitive impairment 5. Type 2 diabetes mellitus 6. Suspected upper GI bleed Today, I reviewed her medication list the lab work results. IV heparin discontinued given evidence of GI bleed. I would consult GI for further evaluation. Patient denies any abdominal pain. We will continue IV Protonix daily. Monitor CBC closely. Continue optimal medical management with dual antiplatelet therapy, beta angelika , and Heladio inhibitors. Lipitor 80 for now may be decreased upon discharge given that her cholesterol level is at goal. Echocardiogram showed preserved ejection fraction of 55-60%. We will repeat lab work in the morning. Consult PT/OT.
[2017-01-27] MEDS: PANTOPRAZOLE 40 MG/10 ML VIAL IVP SCH (11:33)
[2017-01-27 11:39] LABS: Glucose,Whole Blood 304 mg/dL (75-99)
[2017-01-27 13:42] VITALS: BMI 26.8
--- NOTE | 2017-01-27 14:26 | P.PN ---
Subjective Principal diagnosis: non-STEMI this is a pleasant 86-year-old female who presented to the hospital with an acute ST elevation myocardial infarction. She declined any invasive workup. Patient was seen and examined this morning, feels well, denies any chest pain or difficulty in breathing. patient had bowel movement, which was black in color, positive occult stool. She was given all of her medications at this morning,noon Blood pressure 84/50.patient's dose of lisinopril was decreased to 2-1/2 mg 1 tablet daily today.IV heparin will be discontinued, aspirin will be discontinued and we will continue with Plavix only. Objective - Vital Signs Vital signs: Vital Signs Temp 98.1 F 01/27/17 11:39 Pulse 54 L 01/27/17 11:39 Resp 18 01/27/17 11:39 BP 84/51 01/27/17 11:39 Pulse Ox 97 01/27/17 11:39 Intake & Output 01/26/17 01/27/17 01/27/17 18:59 06:59 18:59 Intake Total 601.443 210 180 Output Total 1 1 Balance 600.443 210 179 Weight 66.5 kg 66.5 kg Intake: IV 60 0.9 normal saline 60 Intake, IV Titration 321.443 Amount Heparin Sodium,Porcine/ 321.443 D5w Pmx 25,000 unit In Dextrose/Water 1 500ml. bag @ 12 UNITS/KG/HR 16. 32 mls/hr IV .Q24H [facility] Rx #:[id number] Oral 280 150 180 Output: Urine 1 Stool 1 Other: Voiding Method Bedside Commode Bedside Commode Bedside Commode Incontinent # Voids 1 # Bowel Movements 1 1 - Exam PHYSICAL EXAMINATION: HEENT: [Head is atraumatic, normocephalic. Pupils equal, round. Neck is supple. There is no elevated jugular venous pressure.] HEART EXAMINATION: [Heart S1, S2 systolic murmur heard. No murmur or gallop heard.] CHEST EXAMINATION:[ Lungs are clear to auscultation and precussion. No chest wall tenderness is noted on palpation or with deep breathing.] ABDOMEN: [ Soft, nontender. Bowel sounds are heard. No organomegaly noted]. EXTREMITIES:[ 2+ peripheral pulses with no evidence of peripheral edema and no calf tenderness noted]. NEUROLOGIC [patient is awake, alert and oriented -3.] . - Labs CBC & Chem 7: 01/27/17 06:51 01/27/17 06:51 Labs: Abnormal Lab Results - Last 24 Hours (Table) 01/26/17 01/26/17 01/26/17 Range/Units 15:20 16:36 21:07 WBC (3.8-10.6) k/uL RBC (3.80-5.40) m/uL Hgb (11.4-16.0) gm/dL Hct (34.0-46.0) % Neutrophils # (1.3-7.7) k/uL APTT 40.5 H (22.0-30.0) sec Sodium (137-145) mmol/L Carbon Dioxide (22-30) mmol/L BUN (7-17) mg/dL Creatinine (0.52-1.04) mg/dL Glucose (74-99) mg/dL POC Glucose (mg/dL) 139 H 177 H (75-99) mg/dL Magnesium (1.6-2.3) mg/dL AST (14-36) U/L ALT (9-52) U/L Total Protein (6.3-8.2) g/dL Albumin (3.5-5.0) g/dL Stool Occult Blood (Negative) 01/26/17 01/26/17 01/26/17 Range/Units 22:45 23:35 23:35 WBC 14.5 H (3.8-10.6) k/uL RBC 3.45 L (3.80-5.40) m/uL Hgb 10.6 L (11.4-16.0) gm/dL Hct 31.4 L (34.0-46.0) % Neutrophils # 11.3 H (1.3-7.7) k/uL APTT 65.3 H (22.0-30.0) sec Sodium (137-145) mmol/L Carbon Dioxide (22-30) mmol/L BUN (7-17) mg/dL Creatinine (0.52-1.04) mg/dL Glucose (74-99) mg/dL POC Glucose (mg/dL) (75-99) mg/dL Magnesium (1.6-2.3) mg/dL AST (14-36) U/L ALT (9-52) U/L Total Protein (6.3-8.2) g/dL Albumin (3.5-5.0) g/dL Stool Occult Blood Positive H (Negative) 01/27/17 01/27/17 01/27/17 Range/Units 05:57 06:51 06:51 WBC 12.4 H (3.8-10.6) k/uL RBC 3.37 L (3.80-5.40) m/uL Hgb 10.8 L (11.4-16.0) gm/dL Hct 31.3 L (34.0-46.0) % Neutrophils # 9.4 H (1.3-7.7) k/uL APTT (22.0-30.0) sec Sodium 132 L (137-145) mmol/L Carbon Dioxide 15 L (22-30) mmol/L BUN 95 H* (7-17) mg/dL Creatinine 1.25 H (0.52-1.04) mg/dL Glucose 214 H (74-99) mg/dL POC Glucose (mg/dL) 220 H (75-99) mg/dL Magnesium 1.5 L (1.6-2.3) mg/dL AST 111 H (14-36) U/L ALT 90 H (9-52) U/L Total Protein 5.5 L (6.3-8.2) g/dL Albumin 3.0 L (3.5-5.0) g/dL Stool Occult Blood (Negative) 01/27/17 Range/Units 11:36 WBC (3.8-10.6) k/uL RBC (3.80-5.40) m/uL Hgb (11.4-16.0) gm/dL Hct (34.0-46.0) % Neutrophils # (1.3-7.7) k/uL APTT (22.0-30.0) sec Sodium (137-145) mmol/L Carbon Dioxide (22-30) mmol/L BUN (7-17) mg/dL Creatinine (0.52-1.04) mg/dL Glucose (74-99) mg/dL POC Glucose (mg/dL) 304 H (75-99) mg/dL Magnesium (1.6-2.3) mg/dL AST (14-36) U/L ALT (9-52) U/L Total Protein (6.3-8.2) g/dL Albumin (3.5-5.0) g/dL Stool Occult Blood (Negative) Assessment and Plan (1) HTN (hypertension) Status: Acute (2) Hyperlipemia Status: Acute (3) Right ventricular dilation Status: Acute (4) ST elevation myocardial infarction (STEMI) of inferior wall Status: Acute (5) Diabetes Status: Acute Plan: from cardiology's perspective, we will decrease the dose of ANABELA inhibitor because of the hypotension today. Continue other medications.aspirin was discontinued and patient was continued on Plavix only. IV heparin discontinued. We will continue to follow. DNP note has been reviewed, I agree with a documented findings and plan of care. Patient was seen and examined.
[2017-01-27 16:44] LABS: Glucose,Whole Blood 217 mg/dL (75-99)
[2017-01-27 20:29] LABS: Glucose,Whole Blood 155 mg/dL (75-99)
[2017-01-27] MEDS: HEPARIN SODIUM,PORCINE 5,000 UNIT/ML 1 ML VIAL SQ SCH (21:10)
[2017-01-27] MEDS: ATORVASTATIN 40 MG TAB PO SCH (21:10)
[2017-01-28 06:32] LABS: Glucose,Whole Blood 126 mg/dL (75-99)
[2017-01-28] MEDS: INSULIN LISPRO (humaLOG) 300 UNIT/3 ML VIAL SQ SCH ×3 (06:37→20:27)
[2017-01-28 06:44] LABS: Basophils % (A) 0 %; CH 30.8; CHCM 33.2; Eosinophils # (A) 0.1 k/uL (0-0.7); Eosinophils % (A) 0 %; HCT 29.8 % (34.0-46.0); HDW 2.88; HGB 10.3 gm/dL (11.4-16.0); Luc # (Auto) 0.24; Luc % (Auto) 2; Lymphocytes # (A) 1.7 k/uL (1.0-4.8); Lymphocytes % (A) 13 %; MCH 32.2 pg (25.0-35.0); MCHC 34.5 g/dL (31.0-37.0); MCV 93.3 fL (80.0-100.0); Monocytes # (A) 0.7 k/uL (0-1.0); Monocytes % (A) 5 %; Neutrophils # (A) 10.8 k/uL (1.3-7.7); Neutrophils % (A) 80 %; RBC 3.19 m/uL (3.80-5.40); RDW 14.1 % (11.5-15.5); WBC 13.6 k/uL (3.8-10.6)
[2017-01-28 06:48] VITALS: RESP 18
[2017-01-28 06:54] LABS: Calcium 8.8 mg/dL (8.4-10.2); Magnesium 2.3 mg/dL (1.6-2.3); Potassium 4.6 mmol/L (3.5-5.1); Total Bilirubin 0.9 mg/dL (0.2-1.3); Total Protein 5.7 g/dL (6.3-8.2)
[2017-01-28] MEDS: PANTOPRAZOLE 40 MG/10 ML VIAL IVP SCH (08:00)
[2017-01-28] MEDS: HEPARIN SODIUM,PORCINE 5,000 UNIT/ML 1 ML VIAL SQ SCH ×2 (08:01→20:20)
[2017-01-28] MEDS ORDERED: LISINOPRIL 2.5 MG TAB PO SCH (09:00)
--- NOTE | 2017-01-28 09:24 | P.CONS ---
History of Present Illness - Reason for Consult Consult date: 01/28/17 possible ugi bleed Requesting physician: Shanae Ortiz - History of Present Illness 86-year-old female admitted with acute ST elevation GA. History obtained from medical records and nursing staff. Patient is obtunded and unarousable unable to provide history. Consultation requested for GI bleed black colored stools after receiving intravenous heparin. Admission hemoglobin 14.2 currently 10.3. Platelet 246. INR 1.1. IV heparin discontinued. BUN 97. Creatinine 1.4. Clostridium difficile toxin negative. Hemoccult positive. Nursing reports no episodes of gross hematemesis or hematochezia. Unsure patient has had a recent EGD colonoscopy. Unsure patient has history of GI bleed or peptic ulcer disease. Review of Systems Constitutional: Denies fever, chills, sweats, weight gain, or loss. HEENT: Negative for migraines, blurred vision or loss, earaches, drainage, tinnitus, oral mucosal lesions, dysphagia, or odynophagia. CARDIAC: Hypertension. Negative for chest pain, arrhythmias, or palpitation. RESPIRATORY: Negative for shortness of breath, hemoptysis, cough, or sputum production. GI: See HPI for pertinent findings. : Negative for hematuria, urgency, frequency, polyuria, or dysuria. GYNc: Breast cancer hx. Negative vaginal discharge. MUSCULOSKELETAL: Negative for muscle aches, swelling, arthritis, and arthralgias. NEUROLOGIC: Hx TIA. ENDOCRINE: Diabetes mellitus. Negative for thyroid problems. SKIN: Negative for rash or itching. PSYCHIATRIC: Alzheimers dementia. ROS unobtainable: due to mental status (Unable to obtain medical records and nursing staff utilized for information) All systems: negative (See HPI) Past Medical History Past Medical History: Cancer, Diabetes Mellitus, Eye Disorder, Hypertension, Pneumonia, Vascular Disorder Additional Past Medical History / Comment(s): Alzheimer's dementia, previous history of TIA, breast cancer diagnosed approximately 10 years ago, previous UTI , diabetes mellitus, hypertension, peripheral vascular disease with a previous ulcer in the right lower extremity 2016 at was treated History of Any Multi-Drug Resistant Organisms: None Reported Past Surgical History: Tonsillectomy Additional Past Surgical History / Comment(s): Lumpectomy Past Anesthesia/Blood Transfusion Reactions: No Reported Reaction Past Psychological History: No Psychological Hx Reported Additional Psychological History / Comment(s): pt stated currently living alone( at [facility])-lives n aura that has 2 steps to get into home. no pets.no outside services.has a cane/walker. Smoking Status: Never smoker Past Alcohol Use History: None Reported Past Drug Use History: None Reported - Past Family History Brother(s) Family Medical History: Cancer Additional Family Medical History / Comment(s): breast and colon Father Family Medical History: Cancer Additional Family Medical History / Comment(s): prostated Sister(s) Family Medical History: Cancer Additional Family Medical History / Comment(s): bladder cancer Mother Family Medical History: Dementia Medications and Allergies Home Medications Medication Instructions Recorded Confirmed Type Furosemide [Furosemide] 20 mg PO DAILY 12/05/15 01/25/17 History Lisinopril [Zestril] 10 mg PO DAILY 02/05/16 01/25/17 History glipiZIDE [Glucotrol] 15 mg PO BID 02/05/16 01/25/17 History Allergies Allergy/AdvReac Type Severity Reaction Status Date / Time No Known Allergies Allergy Verified 01/25/17 13:22 Physical Exam Vitals: Vital Signs Temp Pulse Resp BP Pulse Ox 01/28/17 04:00 97.1 F L 43 L 18 95/49 97 01/28/17 00:00 52 L 16 108/54 100 01/27/17 20:00 97.4 F L 52 L 16 85/45 98 01/27/17 16:00 97.5 F L 62 18 102/64 99 01/27/17 11:39 98.1 F 54 L 18 84/51 97 Intake and Output 01/27/17 01/28/17 01/28/17 22:59 06:59 14:59 Intake Total 50 360 Output Total 1 Balance 49 360 Intake: IV 160 0.9 normal saline 160 Oral 50 200 Output: Stool 1 Other: Voiding Method Bedside Commode Bedside Commode # Voids 1 # Bowel Movements 1 Weight 68.1 kg General appearance: Sleeping unarousable appears in no distress. HET: Head is normocephalic and atraumatic. Pupils are equal and reactive but sluggish. Oropharynx not examined. Neck: Supple without lymphadenopathy. Trachea midline. Heart: S1 S2. Regular rate and rhythm. Lungs: No crackles or wheezes are heard. Abdomen: Soft, nondistended with hypoactive bowel sounds. No palpable organomegaly or masses. Extremities: Normal skin color and turgor. No cyanosis, rash, ulceration, clubbing, or edema. Radial and pedal pulses are 2/4 bilaterally. Neurological: Unarousable Results CBC & Chem 7: 01/28/17 06:17 01/28/17 06:17 Labs: Abnormal Lab Results - Last 24 Hours (Table) 01/27/17 01/27/17 01/27/17 Range/Units 11:36 16:38 20:28 WBC (3.8-10.6) k/uL RBC (3.80-5.40) m/uL Hgb (11.4-16.0) gm/dL Hct (34.0-46.0) % Neutrophils # (1.3-7.7) k/uL Sodium (137-145) mmol/L Carbon Dioxide (22-30) mmol/L BUN (7-17) mg/dL Creatinine (0.52-1.04) mg/dL Glucose (74-99) mg/dL POC Glucose (mg/dL) 304 H 217 H 155 H (75-99) mg/dL AST (14-36) U/L ALT (9-52) U/L Total Protein (6.3-8.2) g/dL Albumin (3.5-5.0) g/dL 01/28/17 01/28/17 01/28/17 Range/Units :17 06:17 06:24 WBC 13.6 H (3.8-10.6) k/uL RBC 3.19 L (3.80-5.40) m/uL Hgb 10.3 L (11.4-16.0) gm/dL Hct 29.8 L (34.0-46.0) % Neutrophils # 10.8 H (1.3-7.7) k/uL Sodium 132 L (137-145) mmol/L Carbon Dioxide 15 L (22-30) mmol/L BUN 97 H* (7-17) mg/dL Creatinine 1.43 H (0.52-1.04) mg/dL Glucose 139 H (74-99) mg/dL POC Glucose (mg/dL) 126 H (75-99) mg/dL AST 100 H (14-36) U/L ALT 104 H (9-52) U/L Total Protein 5.7 L (6.3-8.2) g/dL Albumin 3.1 L (3.5-5.0) g/dL Assessment and Plan (1) GI bleed Narrative/Plan: Possible gastritis esophagitis possible peptic ulcer disease exacerbated by heparin therapy other pathology cannot be entirely excluded Status: Acute (2) Melena Status: Acute (3) Acute blood loss anemia Status: Acute (4) STEMI (ST elevation myocardial infarction) Status: Acute Plan: 1. Patient appears to be actively dying she is unresponsive. No CODE STATUS. 2. Continue supportive comfort measures. Endoscopy not planned. Thank you for this kind referral and the opportunity to participate in the care of your patient. This consultation was discussed with Dr. Trujillo. The impression and plan of care have been directed as dictated.
[2017-01-28] MEDS ORDERED: SODIUM CHLORIDE 0.9% 500 ML IV ONE (10:49)
--- NOTE | 2017-01-28 11:28 | P.PN ---
Subjective Patient was found to be obtunded this morning. She is having agonal breathing. Apparently her mentation is been worsening since 3:00 this morning. Unfortunately I was not informed until I saw her today at around 11 in the morning. Patient is DNR/DNI but is not on hospice care. She was up in the chair talking and eating her lunch when I saw her yesterday. There is no evidence of further bleeding. She appeared slightly hypotensive but the rest of her vital signs and blood work are within acceptable range. Objective - Vital Signs Vital signs: Vital Signs Temp 97.3 F L 01/28/17 08:00 Pulse 50 L 01/28/17 08:00 Resp 18 01/28/17 08:00 BP 98/47 01/28/17 08:00 Pulse Ox 93 L 01/28/17 08:00 Intake & Output 01/27/17 01/28/17 01/28/17 18:59 06:59 18:59 Intake Total 230 360 Output Total 2 Balance 228 360 Weight 66.5 kg 68.1 kg Intake: IV 160 0.9 normal saline 160 Oral 230 200 Output: Stool 2 Other: Voiding Method Bedside Commode Bedside Commode Bedside Commode # Voids 1 # Bowel Movements 1 - Exam General: The patient is obtunded and not arousable Eye: there is normal conjunctiva bilaterally. Neck: The neck is supple, there is no JVD. Cardiovascular: Normal S1-S2, no S3-S4, no murmurs. Respiratory: Lungs some rhonchi Gastrointestinal: Abdomen is soft, nontender Musculoskeletal: There is no pedal edema. Skin: Skin is warm and dry - Labs CBC & Chem 7: 01/28/17 06:17 01/28/17 06:17 Labs: Abnormal Lab Results - Last 24 Hours (Table) 01/27/17 01/27/17 01/27/17 Range/Units 11:36 16:38 20:28 WBC (3.8-10.6) k/uL RBC (3.80-5.40) m/uL Hgb (11.4-16.0) gm/dL Hct (34.0-46.0) % Neutrophils # (1.3-7.7) k/uL Sodium (137-145) mmol/L Carbon Dioxide (22-30) mmol/L BUN (7-17) mg/dL Creatinine (0.52-1.04) mg/dL Glucose (74-99) mg/dL POC Glucose (mg/dL) 304 H 217 H 155 H (75-99) mg/dL AST (14-36) U/L ALT (9-52) U/L Total Protein (6.3-8.2) g/dL Albumin (3.5-5.0) g/dL 01/28/17 01/28/17 01/28/17 Range/Units 06:17 06:17 06:24 WBC 13.6 H (3.8-10.6) k/uL RBC 3.19 L (3.80-5.40) m/uL Hgb 10.3 L (11.4-16.0) gm/dL Hct 29.8 L (34.0-46.0) % Neutrophils # 10.8 H (1.3-7.7) k/uL Sodium 132 L (137-145) mmol/L Carbon Dioxide 15 L (22-30) mmol/L BUN 97 H* (7-17) mg/dL Creatinine 1.43 H (0.52-1.04) mg/dL Glucose 139 H (74-99) mg/dL POC Glucose (mg/dL) 126 H (75-99) mg/dL AST 100 H (14-36) U/L ALT 104 H (9-52) U/L Total Protein 5.7 L (6.3-8.2) g/dL Albumin 3.1 L (3.5-5.0) g/dL Assessment and Plan Plan: 1. Acute inferior wall ST elevation myocardial infarction 2. Essential hypertension 3. Mixed hyperlipidemia currently on Lipitor 80 for acute [place]. Total cholesterol 106, LDL 57 4. Underlying dementia/cognitive impairment 5. Type 2 diabetes mellitus 6. Suspected upper GI bleed Patient had acute mental status change since this morning. Exact etiology unclear. I would obtain computed tomography scan of the brain without contrast stat. I would also order an arterial blood gas to evaluate for possible hypercapnic respiratory failure. Her son was contacted by nursing staff and is aware of the situation. Patient is DNR/DNI. Prognosis is very guarded Today, I reviewed her medication list the lab work results.
--- NOTE | 2017-01-28 11:39 | CT ---
EXAMINATION TYPE: CT brain wo con DATE OF EXAM: 01/28/2017 11:34 AM COMPARISON: NONE HISTORY: Altered mental status CT DLP: 959.2 mGycm Automated exposure control for dose reduction was used. FINDINGS: There are generalized changes of sulcal prominence and ventriculomegaly, compatible with atrophic say nge. There is diffuse periventricular white matter lucency, compatible with small vessel ischemic say nge. There is no acute focal lesion, mass effect or midline shift identified. I do not see evidence o f intracranial blood. Visualized portions of the paranasal sinuses and mastoids are clear. There is severe degenerative change in both temporomandibular joints. IMPRESSION: 1. NO ACUTE INTRACRANIAL ABNORMALITY. 2. ATROPHIC CHANGE. 3. CHRONIC WHITE MATTER ISCHEMIC CHANGE. 4. SEVERE DEGENERATIVE CHANGE, BOTH TMJS.
[2017-01-28 11:42] LABS: Glucose,Whole Blood 208 mg/dL (75-99)
--- NOTE | 2017-01-28 14:49 | P.PN ---
Subjective Principal diagnosis: non-STEMI this is a pleasant 86-year-old female who presented to the hospital with an acute ST elevation myocardial infarction. She declined any invasive workup. Patient is quite lethargic today overall.nonresponsive,blood pressure 98/50 with a heart rate in the 50s.Her family will be present tomorrow to discuss possible hospice. Objective - Vital Signs Vital signs: Vital Signs Temp 97.3 F L 01/28/17 12:00 Pulse 53 L 01/28/17 12:00 Resp 18 01/28/17 12:00 BP 98/54 01/28/17 12:00 Pulse Ox 98 01/28/17 12:00 Intake & Output 01/27/17 01/28/17 01/28/17 18:59 06:59 18:59 Intake Total 230 360 Output Total 2 1 Balance 228 360 -1 Weight 66.5 kg 68.1 kg Intake: IV 160 0.9 normal saline 160 Oral 230 200 Output: Urine 0 Stool 2 1 Other: Voiding Method Bedside Commode Bedside Commode Bedside Commode # Voids 1 # Bowel Movements 1 - Exam PHYSICAL EXAMINATION: HEENT: [Head is atraumatic, normocephalic. Pupils equal, round. Neck is supple. There is no elevated jugular venous pressure.] HEART EXAMINATION: [Heart S1, S2 systolic murmur heard. No murmur or gallop heard.] CHEST EXAMINATION:[ Lungs are clear to auscultation and precussion. No chest wall tenderness is noted on palpation or with deep breathing.] ABDOMEN: [ Soft, nontender. Bowel sounds are heard. No organomegaly noted]. EXTREMITIES:[ 2+ peripheral pulses with no evidence of peripheral edema and no calf tenderness noted]. NEUROLOGIC [patient is lethargic, unresponsive - Labs CBC & Chem 7: 01/28/17 06:17 01/28/17 06:17 Labs: Abnormal Lab Results - Last 24 Hours (Table) 01/27/17 01/27/17 01/28/17 Range/Units 16:38 20:28 06:17 WBC 13.6 H (3.8-10.6) k/uL RBC 3.19 L (3.80-5.40) m/uL Hgb 10.3 L (11.4-16.0) gm/dL Hct 29.8 L (34.0-46.0) % Neutrophils # 10.8 H (1.3-7.7) k/uL Sodium (137-145) mmol/L Carbon Dioxide (22-30) mmol/L BUN (7-17) mg/dL Creatinine (0.52-1.04) mg/dL Glucose (74-99) mg/dL POC Glucose (mg/dL) 217 H 155 H (75-99) mg/dL AST (14-36) U/L ALT (9-52) U/L Total Protein (6.3-8.2) g/dL Albumin (3.5-5.0) g/dL 01/28/17 01/28/17 01/28/17 Range/Units 06:17 06:24 11:40 WBC (3.8-10.6) k/uL RBC (3.80-5.40) m/uL Hgb (11.4-16.0) gm/dL Hct (34.0-46.0) % Neutrophils # (1.3-7.7) k/uL Sodium 132 L (137-145) mmol/L Carbon Dioxide 15 L (22-30) mmol/L BUN 97 H* (7-17) mg/dL Creatinine 1.43 H (0.52-1.04) mg/dL Glucose 139 H (74-99) mg/dL POC Glucose (mg/dL) 126 H 208 H (75-99) mg/dL AST 100 H (14-36) U/L ALT 104 H (9-52) U/L Total Protein 5.7 L (6.3-8.2) g/dL Albumin 3.1 L (3.5-5.0) g/dL Assessment and Plan (1) HTN (hypertension) Status: Acute (2) Hyperlipemia Status: Acute (3) Right ventricular dilation Status: Acute (4) ST elevation myocardial infarction (STEMI) of inferior wall Status: Acute (5) Diabetes Status: Acute Plan: from cardiology's perspective, we will continue current medications. Recommend discussing hospice care. DNP note has been reviewed, I agree with a documented findings and plan of care. Patient was seen and examined.
[2017-01-28] MEDS: CLOPIDOGREL 75 MG TAB PO SCH (15:55)
[2017-01-28] MEDS: glipiZIDE 5 MG TAB PO SCH ×2 (15:55→20:17)
[2017-01-28] MEDS: METOPROLOL TARTRATE 12.5 MG TAB PO SCH ×2 (15:55→20:17)
[2017-01-28] MEDS: SODIUM CHLORIDE 0.9% 1,000 ML IV SCH (15:56)
[2017-01-28 17:08] LABS: Glucose,Whole Blood 225 mg/dL (75-99)
[2017-01-28] MEDS: FUROSEMIDE 20 MG TAB PO SCH (20:17)
[2017-01-28] MEDS: ATORVASTATIN 40 MG TAB PO SCH (20:17)
[2017-01-28 20:37] LABS: Glucose,Whole Blood 222 mg/dL (75-99)
[2017-01-29] MEDS: SODIUM CHLORIDE 0.9% 1,000 ML IV SCH (01:00)
[2017-01-29 04:25] VITALS: BP 113/55; PULSE 40; TEMP 97.9
--- NOTE | 2017-02-02 10:49 | CDI ---
In responding to this query, please exercise your independent professional judgment. The [facility] Coding Staff and Clinical Documentation Specialists appreciate your assistance in clarifying documentation, maintaining compliance with coding guidelines, accurately documenting patients condition and capturing severity of illness. The fact that a question is asked does not imply that any particular answer is desired or expected. Communication forms are a method of clarifying documentation and are not made part of the Legal Health Record. Thank you in advance for your clarification. Last Revision, August 2015 Enzo Loomis [address] [place] [address] Documentation Clarification Form Mortality Review Date: 02/02/2017 10:29:00 AM From: Joanna Aden RN, CCDS Admit Date: 01/25/2017 12:57:00 PM Patient Name: Vivi Menezes Visit Number: [id number] Dr. Nancy Hilton History/Risk Factors: Acute Inferior wall STEMI this admission, HTN, DM2, GIB Clinical Indicators: 01/27 Attending Progress Note: "Worsening BUN is most likely attributed to ongoing GI bleed." 01/28 Attending Progress Note: "Patient was found to be obtunded this morning. She is having agonal breathing. Apparently her mentation is been worsening since 3:00 this morning. She was up in the chair talking and eating her lunch when I saw her yesterday. She appeared slightly hypotensive but the rest of her vital signs and blood work are within acceptable range." Patient presents with a BUN: 40/42/95/97 CR:.95/.92/1.25/1.43 GFR: >60/49/42 11/30/15-12/05/15 Patients baseline BUN: // CR: .71/.7/.84/.7 GFR: >60 Treatment: IVF: 0.9%NS 500 cc bolus followed by 100cc/hr In order to capture the severity of condition, please clarify if the condition signifies: Acute renal failure Please specify (if known): Cortical, Medullary, or Tubular Necrosis? Acute kidney injury Acute on chronic renal failure Chronic renal failure, please stage Chronic kidney disease (CKD) and please stage Stage 1 GFR >90 Stage 2 GFR 60-89 Stage 3 GFR 30-59 Stage 4 GFR 15-29 Stage 5 GFR <15 ESRD Unable to determine Other, specify Please document in your discharge summary in order to capture severity of illness and risk of mortality. Include clinical findings that support your diagnosis. FYI: Press F11 to launch patient chart. Place X here if this finding has no clinical significance, is not applicable or if you are not able to provide any additional documentation. MTDD
--- NOTE | 2017-02-02 11:12 | CDI ---
In responding to this query, please exercise your independent professional judgment. The [facility] Coding Staff and Clinical Documentation Specialists appreciate your assistance in clarifying documentation, maintaining compliance with coding guidelines, accurately documenting patients condition and capturing severity of illness. The fact that a question is asked does not imply that any particular answer is desired or expected. Communication forms are a method of clarifying documentation and are not made part of the Legal Health Record. Thank you in advance for your clarification. Last Revision, December 2015 Enzo Loomis [address] [place] [address] Documentation Clarification Form Mortality Review Date: 02/02/2017 10:50:00 AM From: Joanna Aden RN, CCDS Admit Date: 01/25/2017 12:57:00 PM Patient Name: Vivi Menezes Visit Number: [id number] Dr. Nancy Hilton Altered mental status was documented in the Attending Progress Notes Patient history/risk factors: Acute inferior wall ST elevation myocardial infarction, Type 2 diabetes mellitus , Underlying dementia/cognitive impairment Clinical Indicators: 01/28 Attending Progress Note: "Patient was found to be obtunded this morning. She is having agonal breathing. Apparently her mentation is been worsening since 3:00 this morning. She was up in the chair talking and eating her lunch when I saw her yesterday. She appeared slightly hypotensive but the rest of her vital signs and blood work are within acceptable range. Patient had acute mental status change since this morning. Exact etiology unclear. I would obtain computed tomography scan of the brain without contrast stat. I would also order an arterial blood gas to evaluate for possible hypercapnic respiratory failure. " 01/27 Attending Progress Note: "she had 2 dark tarry stool tested positive for Hemoccult. Her hemoglobin dropped approximately 2 g. She remained hemodynamically stable. 01/28 GI Consult: Patient appears to be actively dying she is unresponsive. No CODE STATUS. 2. Continue supportive comfort measures." Labs: WBC 11.8/14.5/12.4/13.6, Neutrophils 11.3/9.4/10.8 Hgb: 14.2/10.6/10.6 CO2 20/16/15 BUN: 40/42/95/97 Cr. 95/.92/1.25/1.43 GFR: 56/58/41/35 AST: 142/111/100 ALT: 60/90/104 CT Brain: "ATROPHIC CHANGE. CHRONIC WHITE MATTER ISCHEMIC CHANGE. SEVERE DEGENERATIVE CHANGE, BOTH TMJS." Treatment: IVF bolus and IVF In your professional opinion, please clarify the etiology of the altered mental status, if known. Encephalopathy (specify Type and Underlying Medical Illness) Delirium (specify cause): Dementia (if know, specify Type and if with/without Behavioral Disturbance) Other condition (please specify) Unable to determine Please document in your discharge summary in order to capture severity of illness and risk of mortality. Include clinical findings that support your diagnosis. FYI: Press F11 to launch patient chart. Place X here if this finding has no clinical significance, is not applicable or if you are not able to provide any additional documentation. I would add the problem to the discharge summary MTDD
--- NOTE | 2017-02-08 10:28 | P.DS ---
Providers Date of admission: 01/25/17 12:57 Attending physician: Shanae Ortiz Primary care physician: Iva Borges [facility] Course: This is a 86-year-old female with past medical history noted below who presented to the hospital with shortness of breath and was found to have acute ST elevation [place]. Patient was admitted to the hospital and was treated medically. She refused to undergo left heart catheterization. Her advanced directives were to be comfortable and DNR/DNI. Patient clinical condition was deteriorating overall. Her mentation was getting worse and at some point she became more lethargic and then obtunded. Computed tomography scan of the brain showed no acute findings. Lab work was within normal/acceptable range. Patient 's family did not want to pursue any more diagnostic or therapeutic tests or procedures. They want her to be comfortable. Patient was made comfort care and eventually . Please refer to the electronic chart for more details about this hospitalization. Please refer to nursing staff documentation for the exact date and time of . Below is a list of her medical problems 1. Acute inferior wall ST elevation myocardial infarction 2. Essential hypertension 3. Mixed hyperlipidemia currently on Lipitor 80 for acute [place]. Total cholesterol 106, LDL 57 4. Underlying dementia/cognitive impairment 5. Type 2 diabetes mellitus 6. Suspected upper GI bleed 7. Acute kidney injury, most likely prerenal with suspected ATN Patient Condition at Discharge: Critical Plan - Discharge Summary Discharge Medication List Furosemide [Furosemide] 20 mg PO DAILY 12/05/15 [History] Lisinopril [Zestril] 10 mg PO DAILY 02/05/16 [History] glipiZIDE [Glucotrol] 15 mg PO BID 02/05/16 [History] Follow up Appointment(s)/Referral(s): Iva Borges MD [Primary Care Provider] - 1 Week Discharge Disposition: - Preliminary Cause of Preliminary Cause of : ST elevation [place]
== END 2017-01-29 06:30 | disposition expired ==
LOC: EC 12:26 → 6ICU 12:57 → 6SEL 22:44
PROVIDERS: ADMIT Internal Medicine; ATTEND Internal Medicine
DX: I21.19 ST elevation (STEMI) myocardial infarction involving other coronary artery of inferior wall (principal); N17.0 Acute kidney failure with tubular necrosis; D62 Acute posthemorrhagic anemia; E11.51 Type 2 diabetes mellitus with diabetic peripheral angiopathy without gangrene; G30.9 Alzheimer's disease, unspecified; K92.2 Gastrointestinal hemorrhage, unspecified; F02.80 Dementia in other diseases classified elsewhere, unspecified severity, without behavioral disturbance, psychotic disturbance, mood disturbance, and anxiety; E78.2 Mixed hyperlipidemia; I51.7 Cardiomegaly; I10 Essential (primary) hypertension; Z66 Do not resuscitate; Z79.02 Long term (current) use of antithrombotics/antiplatelets; Z79.899 Other long term (current) drug therapy; Z85.3 Personal history of malignant neoplasm of breast; Z86.73 Personal history of transient ischemic attack (TIA), and cerebral infarction without residual deficits; Z87.11 Personal history of peptic ulcer disease; Z87.440 Personal history of urinary (tract) infections; Z79.82 Long term (current) use of aspirin; Z51.5 Encounter for palliative care
CPT/HCPCS: 36415; 70450; 71010; 80048; 80053; 80061; 82272; 82550; 82553; 83036; 83735; 84443; 84484; 85025; 85027; 85610; 85730; 87324; 93005; 93306; 96365; 96366; 96375; 96376; 99285